=== PATIENT | female | born 1995 | race Hispanic/Latino ===

== ENCOUNTER 2021-12-15 16:56 | Day surgery (SDC) | payer OTHER ==
[2021-12-15 17:31] VITALS: BMI 38.7
[2021-12-15 19:14] LABS: Bilirubin Neg (Negative); Blood, Urine Negative (Negative); Clarity Clear (Clear); Glucose, Urine (Dipstick) Normal (Negative); Ketone, Urine Negative (Negative); Leukocyte Negative (Negative); Nitrite Negative (Negative); Protein, Urine (Dipstick) 15 mg/dl (Neg-Trace); Specific Gravity, Urine 1.025 (1.005-1.030)
[2021-12-15 19:20] LABS: Urine Culture Reflex No No
[2021-12-15 19:41] LABS: RBC/HPF 0-3 HPF (0-3); Squamous Epithelial 0-3 HPF (0-3); Transitional Epithelial 0-3 HPF (None Seen)
[2021-12-15 19:42] LABS: Bacteria/HPF 1+ HPF (None Seen)
[2021-12-15 19:42] LABS: #Eosinphils 0.1 10x3/uL (0.0-0.5); #Monocytes 0.8 10x3/uL (0.0-1.1); #Neutrophils 7.7 10x3/uL (1.5-8.4); %Basophils 0.2 % (0.0-2.0); %Eosinophils 0.4 % (0.0-6.0); %Lymphocytes 23.5 % (18.0-47.0); %Neutrophils 68.4 % (40.0-75.0); Hemoglobin 11.3 g/dL (12.0-15.5); Mean Corpuscular Volume 82.8 fl (81.6-98.3); Mean Platelet Volume 10.6 fl (7.4-10.4); Platelet Count 353 10x3/uL (150-450); RBC Distribution Width 12.7 % (11.5-14.5); White Blood Cell (WBC) Count 11.3 10x3/uL (3.5-10.5)
[2021-12-15 19:58] LABS: ALT (SGPT) Less than 6 U/L (8-55); AST (SGOT) 10 U/L (5-34); Albumin 3.1 g/dL (3.5-5.0); Alkaline Phosphatase 226 U/L (40-110); Anion Gap 12 mmol/L (10-20); BUN (Urea Nitrogen) 8 mg/dL (7.0-18.7); Bilirubin, Total 0.5 mg/dL (0.2-1.2); Calc. Creatinine Clearance 196 mL/min (70-130); Calcium 8.9 mg/dL (7.8-10.44); Carbon Dioxide 20 mmol/L (22-29); Chloride 107 mmol/L (98-107); Estimated GFR 125; Glucose 76 mg/dL (70-105); Potassium 3.8 mmol/L (3.5-5.1); Protein, Total 7.1 g/dL (6.0-8.3); Sodium 135 mmol/L (136-145)
== END 2021-12-15 20:40 | disposition home or self-care (01) ==
LOC: CSHLD/OP 16:56
PROVIDERS: ATTEND Obstetrics & Gynecology
DX: O21.2 Late vomiting of pregnancy (principal); O99.613 Diseases of the digestive system complicating pregnancy, third trimester; K21.9 Gastro-esophageal reflux disease without esophagitis; O26.893 Other specified pregnancy related conditions, third trimester; R10.11 Right upper quadrant pain; R10.12 Left upper quadrant pain; R10.13 Epigastric pain; Z79.82 Long term (current) use of aspirin; Z79.899 Other long term (current) drug therapy; Z3A.31 31 weeks gestation of pregnancy
CPT/HCPCS: 51701; 80053; 81001; 85025; 87086; 99283

== ENCOUNTER 2022-01-29 07:45 | Inpatient (IN) | payer OTHER ==
[2022-01-28 12:27] LABS: Hemoglobin 11.1 g/dL (12.0-15.5); Platelet Count 348 10x3/uL (150-450)
[2022-01-28 12:33] LABS: SARS-CoV-2 NAA Rapid Test Not Detected (NotDetected)
[2022-01-28 12:50] LABS: HBSAg Index 0.18 S/CO (0-0.99); HIV (1/2) Antibody/Antigen Non-Reactive (NonReactive); HIV 1/2 INDEX 0.07 S/CO (<1.00); Hep B Surf Ag Non-Reactive S/CO (NonReactive)
[2022-01-28 12:51] LABS: Syphilis Antibody Nonreactive (Nonreactive); Syphilis Antibody Index 0.03 S/CO (<1.00 Non-Reactive)
[2022-01-29 08:17] VITALS: BMI 38.9
[2022-01-29] MEDS ORDERED: Bicitra 30 ML UDCUP PO PRN (08:18)
[2022-01-29] MEDS ORDERED: Famotidine/PF 20 mg/2ml Vial SLOW IVP PRN (08:18)
[2022-01-29] MEDS ORDERED: Promethazine HCl 25 MG/ML VIAL IM PRN ×2 (08:18→09:54)
[2022-01-29] MEDS ORDERED: CEFAZOLIN 2 GM in Sodium Chloride 0.9% 100 ML IVPB SCH (08:18)
[2022-01-29] MEDS ORDERED: Lactated Ringer's 1,000 ML IV SCH (08:18)
[2022-01-29] MEDS ORDERED: hydrALAZINE 20 MG/ML VIAL SLOW IVP PRN ×2 (08:18→09:49)
[2022-01-29] MEDS ORDERED: Ondansetron PF 4 MG/2 ML Vial IVP PRN ×2 (08:18→09:54)
[2022-01-29] MEDS ORDERED: Acetaminophen 325 MG TAB PO PRN (09:49)
[2022-01-29] MEDS ORDERED: Simethicone Chewable 80 MG TAB PO PRN (09:49)
[2022-01-29] MEDS ORDERED: Lanolin Ointment 7 GM TUBE TOP PRN (09:49)
[2022-01-29] MEDS ORDERED: Boostrix 0.5 ML (Tdap) VIAL (>/=7 yrs of age) IM ONE (09:49)
[2022-01-29] MEDS ORDERED: diphenhydrAMINE 25 MG CAP PO PRN (09:49)
[2022-01-29] MEDS ORDERED: Moisturizing Cream (Eucerin) 113 GM JAR TOP PRN (09:54)
[2022-01-29] MEDS ORDERED: Ketorolac Tromethamine 30 MG/ML VIAL IVP PRN (09:54)
[2022-01-29] MEDS ORDERED: Ondansetron HCl/PF 4 MG/2 ML Vial IVP PRN (09:54)
[2022-01-29] MEDS ORDERED: Naloxone HCl 0.4 mg/ml Vial IVP PRN ×2 (09:54)
[2022-01-29] MEDS ORDERED: diphenhydrAMINE 50 MG/ML VIAL IVP PRN (09:54)
[2022-01-29] MEDS ORDERED: Meperidine HCl/PF 25 MG/ML VIAL SLOW IVP PRN (09:54)
[2022-01-29] MEDS ORDERED: Fentanyl 100 MCG/2 ML VIAL SLOW IVP PRN (09:54)
[2022-01-29] MEDS ORDERED: Promethazine HCl 25 MG SUPP PR PRN (09:54)
[2022-01-29] MEDS ORDERED: Naloxone HCl 0.4 mg/ml Vial IV PRN (09:54)
[2022-01-29] MEDS ORDERED: Ketorolac Tromethamine 30 MG/ML VIAL IVP SCH (10:00)
[2022-01-29] MEDS ORDERED: Communication Order-Pharmacy FS SCH (10:00)
[2022-01-29] MEDS ORDERED: Morphine PF 10 MG/10 ML VIAL ONE (10:20)
[2022-01-29] MEDS ORDERED: Phenylephrine 40 MG/NS 250 ML 250 ML ONE (10:21)
[2022-01-29] MEDS ORDERED: Ketorolac Tromethamine 30 MG/ML VIAL ONE (10:21)
[2022-01-29] MEDS ORDERED: Oxytocin 10 UNITS/ML VIAL ONE (10:21)
[2022-01-29] MEDS ORDERED: PHENYLEPHRINE-NS 100 MCG/ML 10 ML SYRINGE ONE (10:21)
[2022-01-29] MEDS ORDERED: Dexamethasone 4 mg/ml Vial ONE (10:21)
[2022-01-29] MEDS: Ondansetron PF 4 MG/2 ML Vial ONE ×2 (14:14→20:22)
[2022-01-29] MEDS: Ferrous Sulfate 325 MG TAB PO SCH (21:19)
[2022-01-29] MEDS: Docusate 100 MG CAP PO SCH (21:19)
[2022-01-29] MEDS ORDERED: Zolpidem Tartrate 5 MG TAB PO PRN (22:15)
[2022-01-29] MEDS ORDERED: HYDROcodone/Acetaminophen 5/325 mg Tablet PO PRN (22:30)
[2022-01-30 05:34] LABS: Hemoglobin 9.7 g/dL (12.0-15.5); Mean Corpuscular HGB CONC 33.7 g/dL (32.0-36.0); Mean Corpuscular Hemoglobin 27.6 pg (27.0-33.0); Mean Corpuscular Volume 81.8 fl (81.6-98.3); Mean Platelet Volume 11.1 fl (7.4-10.4); Platelet Count 360 10x3/uL (150-450); RBC Distribution Width 13.9 % (11.5-14.5); Red Blood Cell (RBC) Count 3.52 10x6/uL (3.90-5.03); White Blood Cell (WBC) Count 12.3 10x3/uL (3.5-10.5)
[2022-01-30] MEDS: HYDROcodone/Acetaminophen 5/325 mg Tablet PO PRN ×2 (08:55→18:18)
[2022-01-30] MEDS: Ferrous Sulfate 325 MG TAB PO SCH ×2 (08:55→21:28)
[2022-01-30] MEDS: Enoxaparin Sodium 40 MG/0.4 ML SYRINGE SC SCH (08:55)
[2022-01-30] MEDS: Prenatal Vitamin 1 TAB PO SCH (08:55)
[2022-01-30] MEDS: Docusate 100 MG CAP PO SCH ×2 (08:55→21:28)
[2022-01-30] MEDS: Ibuprofen 800 MG TAB PO SCH ×2 (14:11→21:28)
[2022-01-31] MEDS: HYDROcodone/Acetaminophen 5/325 mg Tablet PO PRN ×3 (03:52→13:06)
[2022-01-31] MEDS: Ibuprofen 800 MG TAB PO SCH ×2 (05:36→14:53)
[2022-01-31] MEDS: Enoxaparin Sodium 40 MG/0.4 ML SYRINGE SC SCH (08:40)
[2022-01-31] MEDS: Prenatal Vitamin 1 TAB PO SCH (08:40)
[2022-01-31] MEDS: Docusate 100 MG CAP PO SCH (08:40)
[2022-01-31] MEDS: Ferrous Sulfate 325 MG TAB PO SCH (08:40)
[2022-01-31 16:19] VITALS: BP 115/65; TEMP 98.2
== END 2022-01-31 15:00 | disposition home or self-care (01) | DRG 787 ==
LOC: CSHLD 07:45 → CSHPP 13:00
PROVIDERS: ADMIT Obstetrics & Gynecology; ATTEND Obstetrics & Gynecology
PROC: 10D00Z1 Extraction of Products of Conception, Low, Open Approach (ICD-10-PCS; principal; 2022-01-29)
PROC: 3E0334Z Introduction of Serum, Toxoid and Vaccine into Peripheral Vein, Percutaneous Approach (ICD-10-PCS; 2022-01-29)
DX: O34.211 Maternal care for low transverse scar from previous cesarean delivery (principal); D68.59 Other primary thrombophilia; O99.12 Other diseases of the blood and blood-forming organs and certain disorders involving the immune mechanism complicating childbirth; O26.893 Other specified pregnancy related conditions, third trimester; Z67.41 Type O blood, Rh negative; Z20.822 Contact with and (suspected) exposure to COVID-19; Z3A.38 38 weeks gestation of pregnancy; Z37.0 Single live birth; Z79.899 Other long term (current) drug therapy; Z79.82 Long term (current) use of aspirin
CPT/HCPCS: 36415; 51702; 85014; 85018; 85027; 85049; 85461; 86780; 86850; 86900; 86901; 87340; 87389; 90384; 96372; J1100; J1650; J1885; J2274; J2405; J2590; U0002